=== PATIENT | female | born 1945 | race Caucasian/White ===

== ENCOUNTER 2019-04-26 09:32 | Inpatient (IN) ==
--- NOTE | 2019-04-26 10:03 | PROVIDER DOCUMENTATION ---
HPI-Abdominal Pain/GI Problem - General Chief Complaint: Abdominal Pain Stated Complaint: ABD PAIN,N/V Time Seen by Provider: 04/26/19 09:45 Source: patient, family Allergies/Adverse Reactions: Patient Allergies Allergy/AdvReac Type Severity Reaction Status Date / Time ampicillin Allergy RASH Verified 04/26/19 10:13 erythromycin base Allergy NAUSEA/VOMI Verified 04/26/19 10:13 TING Home Medications: Home Medication List Medication Instructions Recorded Confirmed Last Taken Type Alendronate Sodium [Fosamax] 1 tab PO DIRECTED 04/26/19 04/26/19 Unknown History Bupropion HCl [Bupropion Xl] 1 tab PO QAM 04/26/19 04/26/19 04/24/19 History Carvedilol [Coreg] 1 tab PO BID 04/26/19 04/26/19 04/24/19 History Diclofenac Sodium [Voltaren] 1 applic TD 4XDAY 04/26/19 04/26/19 04/24/19 History Hydrocodone/Acetaminophen 1 tab PO Q8H PRN PRN 04/26/19 04/26/19 04/24/19 History [Hydrocodone-Acetamin 10-325 mg] Losartan Potassium [Cozaar] 1 tab PO DAILY 04/26/19 04/26/19 04/24/19 History Metformin HCl [Glucophage] 1 tab PO BID 04/26/19 04/26/19 04/24/19 History Metoclopramide HCl 1 tab PO BID 04/26/19 04/26/19 04/24/19 History Omeprazole [Prilosec] 1 cap PO DAILY 04/26/19 04/26/19 04/24/19 History Ondansetron [Zofran] 1 tab PO Q6H PRN PRN 04/26/19 04/26/19 Unknown History Pramipexole [Mirapex] 1 tab PO QHS 04/26/19 04/26/19 04/24/19 History Promethazine [Phenergan] 1 tab PO BID 04/26/19 04/26/19 04/24/19 History Simvastatin 1 tab PO DAILY 04/26/19 04/26/19 04/24/19 History - History of Present Illness-ABD Nature of Presenting Problems: Patient states that she has had abdominal pain, nausia and vomiting since Saturday night. Her last bm was . She has a knot in her upper abdomen that has been painful. She has a history of a hernia, but thinks its gotten bigger. Abdominal Pain Onset Location: reports: RLQ, epigastric Pain Radiation: reports: no radiation Quality of Pain: reports: aching Severity in ED: reports: moderate, severe Onset/Duration: reports: 24 hours ago Timing: reports: still present Activities at Onset: reports: none Exposure to sick contacts?: No Modifying Factors: improves with: eating (caused nausia and vomiting) Associated Symptoms: reports: constipation Last BM: 3 days ago Dark Stools Present?: reports: none noticed Rectal Bleeding: reports: none Rectal Pain: reports: none Emesis Description: reports: clear (brown) Bruising or Bleeding Gums?: No Similar Symptoms Previously?: No Recently seen or treated by another doctor?: No Review of Systems - Adult - REVIEW OF SYSTEMS - ADULT Constitutional: reports: no symptoms reported Eyes: reports: no symptoms reported Ears, Nose, Mouth & Throat: reports: no symptoms reported Cardiovascular: reports: no symptoms reported Respiratory: reports: no symptoms reported Gastrointestinal: reports: see HPI Genitourinary: reports: no symptoms reported Musculoskeletal: reports: other (chronic back pain) Integumentary: reports: no symptoms reported Neurological: reports: no symptoms reported Psychiatric: reports: no symptoms reported Endocrine: reports: no symptoms reported Hematologic/Lymphatic: reports: no symptoms reported Allergic/Immunologic: reports: no symptoms reported Past History - Adult - PAST MEDICAL HISTORY-ADULT Review of Records: reports: Old Records Reviewed, Nursing Assessment Review Physical Exam-General - PHYSICAL EXAM-ADULT Initial Vital Signs Reviewed: Yes - CONSTITUTIONAL General Appearance: alert, no apparent distress - EYES Eyes: PERRL/EOMI, pink conjunctivae - HEAD, EARS, NOSE, MOUTH & THROAT HENMT: normocephalic/atraumatic, moist mucous membranes, normal ENT inspection, TMs normal, pharynx normal - NECK Neck: non-tender, full range of motion, supple - RESPIRATORY Respiratory: lungs clear, normal breath sounds, no pleuratic chest pain, no respiratory distress, no accessory muscle use - CARDIOVASCULAR Cardiovascular: normal peripheral pulses, regular rate, rhythm, no edema, no JVD , systolic murmur (2/6) - GASTROINTESTINAL (ABDOMEN) Abdominal Exam: abnormal bowel sounds, tenderness, mass (right upper quadrant. tender to palpate) - LYMPHATIC Lymphatic: no adenopathy - MUSCULOSKELETAL Back Exam: normal inspection Extremity: normal range of motion, non-tender, normal gait - SKIN Integumentary: normal color, normal turgor, warm/dry - NEUROLOGIC Neurologic: grossly normal - PSYCHIATRIC Psych/Mental Status: normal mood/affect Progress - PLAN OF CARE/RESULTS Progress/Plan/Lab Results: Vital Signs - 8 hr 04/26/19 09:37 Temperature 97.8 F Pulse Rate 135 H Respiratory Rate 22 Blood Pressure 122/66 O2 Sat by Pulse Oximetry 95 Orders Category Date Time Status Cardiac Monitoring DIRECTED Care 04/26/19 09:43 Active IV Insertion ORDERED Care 04/26/19 09:43 Active Notify MD of + Sepsis Screen NOW Care 04/26/19 09:43 Active Notify Physician As Ordered Care 04/26/19 09:43 Active CHEST-1 VIEW [RAD] Stat Exams 04/26/19 09:[address] ABD/PELVIS W/IV CONT ONLY [CT] Stat Exams 04/26/19 09:56 Ordered BLOOD CULTURE [BLDCUL] Stat Lab 04/26/19 09:43 Uncollected CBC WITH DIFF [HEME] Stat Lab 04/26/19 09:43 Uncollected CK PROFILE [SP CHEM] Stat Lab 04/26/19 09:43 Uncollected COMPREHENSIVE METABOLIC PANEL [CHEM] Stat Lab 04/26/19 09:43 Uncollected LACTATE, PLASMA [CHEM] Q3H Lab 04/26/19 09:45 Uncollected LACTATE, PLASMA [CHEM] Q3H Lab 04/26/19 12:45 Uncollected LACTATE, PLASMA [CHEM] Q3H Lab 04/26/19 15:45 Uncollected PROTIME WITH INR [COAG] Stat Lab 04/26/19 09:43 Uncollected PTT [COAG] Stat Lab 04/26/19 09:43 Uncollected TROPONIN T HIGH SENSITIVITY Stat Lab 04/26/19 09:43 Uncollected URINALYSIS W/POSS RFLX CULT [URINALYSIS] Stat Lab 04/26/19 09:43 Uncollected Oxygen Device Stat Oth 04/26/19 09:43 Active Result Diagrams: 04/26/19 10:40 04/26/19 10:40 - CONSULTS/PCP/HOSPITALIST Notification #1 *Consult/PCP/Hospitalist*: Dr Angel French Time Discussed: 13:10 Consult Disposition: Will see in ED Departure - Departure Date of Disposition Decision: 04/26/19 Time of Disposition Decision: 14:17 DIAGNOSIS: Incarcerated hernia, Small bowel obstruction Disposition: ADMITTED INPATIENT 09 Certified Medical Emergency: Emergent Condition: Serious Referrals and Follow-Ups: Dawn Keys MD [Primary Care Provider] - - Critical Care Note This patient required my direct & personal management of CC.: No Attestation - Physician/ HUSSEIN Attestation Patient care was provided by Advanced Practice Provider:: No The physician spent face to face time with patient:: Yes Advanced Practice Provider documentation review:: Supervising physician onsite and consulted in the evaluation and care of this patient. The physician did have a face to face encounter with the patient.
--- NOTE | 2019-04-26 10:17 | Diag Imaging Result Doc PS360 ---
EXAM: CHEST-1 VIEW 04/26/2019 HISTORY: sepsis protocol TECHNIQUE: AP portable upright at 0955 COMMENT: The inspiration is suboptimal. There is a loop of the hepatic flexure of the colon under the right hemidiaphragm. There are no previous studies. There are no apparent focal pulmonary opacities. IMPRESSION: No evidence of acute disease. Electronically signed by Liam King 04/26/2019 10:15 AM
[2019-04-26 10:59] LABS: BASO# 0.06 X1000 (0.0-0.2); BASO% 0.3 % (0.0-0.8); HEMATOCRIT 44.8 % (37.0-47.0); HEMOGLOBIN 14.9 g/dL (12.0-16.0); IMM GRAN# 0.05 X1000 (0.0-0.04); IMM GRAN% 0.3 % (0.0-0.5); LYMPH# 1.03 X1000 (1.2-3.4); LYMPH% 5.6 % (20.5-51.1); MCH 29.9 PG (27-31); MCHC 33.3 g/dL (33-37); MONO# 1.99 X1000 (0.11-0.59); MONO% 10.8 % (1.7-9.3); MPV 8.6 FL (7.4-10.4); NEUT# 15.32 X1000 (1.4-6.5); PLT 453 X1000 (130-400); RBC 4.98 XMIL (4.2-5.4); RDW 13.1 % (11.5-14.5); WBC 18.45 X1000 (4.8-10.8)
[2019-04-26 11:04] LABS: PROTIME 13.3 Seconds (11.0-16.0)
[2019-04-26 11:04] LABS: URINE SOURCE CATH
[2019-04-26 11:05] LABS: PTT 30.1 Seconds (22.3-41.8)
[2019-04-26 11:07] LABS: BILIRUBIN URINE SMALL (NEGATIVE); BLOOD URINE MODERATE (NEGATIVE); COLOR YELLOW; GLUCOSE URINE TRACE mg/dL (NEGATIVE); KETONE URINE TRACE mg/dL (NEGATIVE); LEUKOCYTES URINE NEGATIVE (NEGATIVE); NITRITE URINE NEGATIVE (NEGATIVE); PH URINE 5.5; PROTEIN URINE 70 mg/dL (NEGATIVE); SP GRAVITY URINE 1.019; TURBIDITY URINE HAZY (CLEAR); UR EPITHELIAL CELLS <10 /HPF (<10); URINE BACTERIA NEGATIVE /HPF; URINE WBC <10 /HPF (<10); UROBILINOGEN URINE NORMAL (NORMAL)
[2019-04-26] MEDS ORDERED: NS 1,000 ML IV ONE ×2 (11:14→11:54)
[2019-04-26] MEDS ORDERED: PHENERGAN IV ONE (11:15)
[2019-04-26] MEDS ORDERED: SODIUM CHLORIDE 0.9% INJ ONE ×2 (11:15→17:16)
[2019-04-26 11:19] LABS: ESTIMATED GFR > 60
[2019-04-26 11:21] LABS: AGAP 17; ALB/GLOB RATIO 1.3; ALBUMIN 4.1 g/dL (3.5-5.0); ALKALINE PHOSPHATASE 84 U/L (32-104); BUN 22 mg/dL (8-22); CHLORIDE 88 mmol/L (98-107); CK PROFILE 93 U/L (24-173); COSMO 270; CREATININE 0.8 mg/dL (0.5-0.9); GLUCOSE 168 mg/dL (70-104); GOT 23 U/L (10-30); GPT 16 U/L (10-36); SODIUM 131 mmol/L (136-145); TCO2 26 mmol/L (25-35); TOTAL BILIRUBIN 0.59 mg/dL (0.20-1.00); TOTAL PROTEIN 7.2 g/dL (6.3-8.3)
[2019-04-26] MEDS ORDERED: LEVAQUIN 500 MG/D5W 500 MG/100 ML IVPB IV ONE (11:37)
--- NOTE | 2019-04-26 12:44 | Diag Imaging Result Doc PS360 ---
EXAM: CT ABD/PELVIS W/IV CONT ONLY 04/26/2019 HISTORY: abdominal pain TECHNIQUE: This exam was performed using automated exposure control, adjustment of mA or kV according to patient size, and/or use of iterative reconstruction technique. COMMENT: The current study is compared with 07/13/2016. There is platelike opacity in the right lower lobe which is slightly worse than on the previous study. There may be atelectasis superimposed on fibrosis. There is a hiatal hernia. The aorta is not distended. The mesenteric and renal arteries are patent. There is no evidence of nephrolithiasis or hydronephrosis. There has been cholecystectomy. There are no apparent renal masses although there are some small cortical cysts on the left. The pancreas is somewhat atrophic. The adrenal glands are not enlarged. There are some cysts present in the liver as well as granulomata in the liver and spleen. There is some fluid in the stomach without significant dilatation. The duodenum is somewhat distended with fluid. There is marked dilatation of the proximal jejunum. There is a ventral hernia above the umbilicus containing a loop of proximal small bowel. This was not the case on the previous study. The small bowel distal to the hernia is normal or decreased in caliber. There is a moderate amount of stool present in the ascending colon. The descending colon and sigmoid are not distended. Pelvis: The appendix is normal in appearance. There is diverticulosis in the sigmoid colon without evidence of diverticulitis. The urinary bladder is not distended. There is no evidence of free fluid. There has been hysterectomy. There are degenerative changes in the symphysis pubis. There are degenerative disc and facet changes in the lumbar spine. IMPRESSION: Ventral hernia with incarcerated loop of small bowel and partial or early small bowel obstruction. Electronically signed by Liam King 04/26/2019 12:41 PM
[2019-04-26] MEDS ORDERED: ATIVAN IV ONE (13:49)
[2019-04-26] MEDS ORDERED: DIPRIVAN 1% ONE (14:12)
[2019-04-26] MEDS ORDERED: FENTANYL ONE (14:12)
[2019-04-26] MEDS ORDERED: ROBINUL ONE ×2 (14:15→15:21)
[2019-04-26] MEDS ORDERED: QUELICIN (DOSE) ONE (14:15)
[2019-04-26] MEDS ORDERED: XYLOCAINE-MPF 2% ONE (14:15)
[2019-04-26] MEDS ORDERED: MARCAINE 0.25% PF ONE (14:26)
[2019-04-26] MEDS ORDERED: NORCURON ONE (14:56)
[2019-04-26] MEDS ORDERED: STERILE WATER INJ. ONE (14:56)
--- NOTE | 2019-04-26 14:59 | HISTORY AND PHYSICAL ---
DATE: 04/26/2019 CHIEF COMPLAINT: Abdominal pain, nausea, vomiting. REASON FOR ADMISSION: Incarcerated ventral incisional hernia. HISTORY OF PRESENT ILLNESS: This is a 73-year-old female who is reasonably healthy. She has had several abdominal operations including laparoscopic cholecystectomy, laparoscopic paraesophageal hernia repair with apparent vagus nerve injury with some degree of gastroparesis associated with it. Earlier today, she developed acute onset worsening of the ventral hernia that she was aware of. It became more firm. She had some vomiting. In the ER, CT scan showed incarcerated ventral hernia with bowel obstruction associated. I was consulted. MEDICAL HISTORY: Restless legs. She has had a history of paraesophageal hernia repair. I believe she has high blood pressure, hyperlipidemia, and a heart murmur which has been nonoperative, and osteoporosis. SURGICAL HISTORY: Laparoscopic paraesophageal hernia, laparoscopic cholecystectomy. SOCIAL HISTORY: No tobacco, alcohol, or drugs. She is a retired teacher. FAMILY HISTORY: Negative for cancer. REVIEW OF SYSTEMS: A 10-point review of systems was performed and negative other than what was mentioned in the HPI. PHYSICAL EXAMINATION: Vital Signs: She is tachycardiac. She is afebrile. Blood pressure 155/89, oxygen saturation 100 percent. General: She is alert. She is appears uncomfortable but in no acute distress. HEENT: No scleral icterus. No cervical mass. Cardiovascular: Sinus tachycardia. Pulmonary: No increased work of breathing. Abdomen: Soft. Mildly distended. There is a tender mass in the midline below a prior scar that is nonreducible, consistent with incarcerated hernia. There are no overlying skin changes. Integument: Warm and dry without jaundice. Psychiatric: Appropriate affect. Peripheral Vascular: She does have some trace lower extremity edema. Lymphatic: No cervical adenopathy. LABORATORY DATA: White count is 18, hematocrit is 44, platelets 453,000. INR is 1.0. Creatinine 0.8. LFTs are normal. Lactate is 1.2. Urinalysis is negative for nitrates and leukocytes. I reviewed her CT scan of the abdomen and pelvis. ASSESSMENT AND PLAN: A 73-year-old female with incarcerated incisional hernia with bowel obstruction associated with it. I do not see obvious signs of ischemia but I worry that this is impending. We discussed risks of bleeding, infection, recurrence, the anticipated recovery, and the possibility of bowel resection. She understands all this and consents. We are going to operate emergently. They have given her antibiotics. We will plan on placing a nasogastric tube in the operating room and plan for bowel rest, and also plan for anticipated ileus. She agrees and consents. cc: Jonh French MD
[2019-04-26] MEDS ORDERED: NEOSTIGMINE ONE (15:20)
[2019-04-26] MEDS ORDERED: ZOFRAN ONE (15:21)
[2019-04-26 16:09] LABS: URINE SOURCE CATH
[2019-04-26 16:15] LABS: BILIRUBIN URINE NEGATIVE (NEGATIVE); BLOOD URINE SMALL (NEGATIVE); COLOR STRAW; GLUCOSE URINE NEGATIVE (NEGATIVE); KETONE URINE NEGATIVE (NEGATIVE); LEUKOCYTES URINE NEGATIVE (NEGATIVE); NITRITE URINE NEGATIVE (NEGATIVE); PROTEIN URINE NEGATIVE (NEGATIVE); SP GRAVITY URINE 1.027; TURBIDITY URINE CLEAR (CLEAR); UR EPITHELIAL CELLS <10 /HPF (<10); URINE BACTERIA NEGATIVE /HPF; URINE RBC <10 /HPF (<10); URINE WBC <10 /HPF (<10); UROBILINOGEN URINE NORMAL (NORMAL)
[2019-04-26] MEDS ORDERED: BLISTEX MEDICATED BERRY LIP BALM ONE (16:21)
[2019-04-26] MEDS: DILAUDID ONE ×4 (16:40→16:52)
[2019-04-26] MEDS ORDERED: LR 1,000 ML ONE (16:50)
[2019-04-26] MEDS ORDERED: PROTONIX IV ONE (17:16)
[2019-04-26] MEDS ORDERED: SODIUM CHLORIDE 0.9% INJ SCH (17:16)
--- NOTE | 2019-04-26 17:31 | EKG Report ---
Test Performed on : 04/26/2019 2:05:19 PM Test Reason : ABD PAIN Blood Pressure : / mmHG Vent. Rate : 108 BPM Atrial Rate : 108 BPM P-R Int : 180 ms QRS Dur : 088 ms QT Int : 344 ms P-R-T Axes : 010 -17 016 degrees QTc Int : 460 ms Sinus tachycardia. Cannot rule out Anterior infarct , age undetermined Abnormal ECG No previous ECGs available Unconfirmed Result
[2019-04-26] MEDS: LR 1,000 ML IV SCH (18:21)
--- NOTE | 2019-04-26 19:38 | OPERATIVE NOTE ---
PROCEDURE DATE: 04/26/2019 POSTOPERATIVE DIAGNOSES: 1. Incarcerated ventral incisional hernia. 2. Small bowel obstruction. POSTOP: 1. Incarcerated ventral incisional hernia. 2. Small bowel obstruction. PROCEDURE PERFORMED: Open repair of incarcerated ventral incisional hernia with reduction of small bowel. ESTIMATED BLOOD LOSS: 20 mL. SPECIMENS: Hernia sac. INDICATIONS: A female who presented with acute worsening of supraumbilical midline incisional hernia with vomiting and CT scan showed incarceration of small bowel causing the point of obstruction. FINDINGS: There was dusky small bowel that pinked up with observation. There was no evidence of full thickness necrosis but was densely incarcerated. OPERATIVE NOTE: Risks, benefits, alternatives discussed with patient, she consented to procedure seen preop surgery site was confirmed. She was taken emergently operating room emergently. She was given preincisional antibiotics. A Clark catheter and nasogastric tube were placed and her abdomen is prepped chlorhexidine solution draped usual fashion. After time-out made a hernia incision over the hernia and carried this down circumferentially dissecting out the sac. We freed it up from the fascia. We had to make the fascial defect larger to allow reduction the small bowel, prior to doing this though we did open the sac and inspect the bowel. It was quite dusky but with observation and placing warm saline on it was able to pink up and there was a very tiny serosal injury made on mobilizing it out of the fascia that was imbricated with 3-0 Vicryl suture, reducing the abdomen, mobilized and freed up the fascia and debrided it circumferentially and then closed with interrupted 0 Prolene sutures along the midline. There was no tension on the closure. We elected to not place mesh given the emergent nature and the changes noted in the bowel although there was no gross contamination. We irrigated the superficial wound, noted hemostasis, closed the skin with surgical clips. A pressure dressing and abdominal binder was applied. She tolerated it well, was awoken and transferred to recovery and we spoke with family. Counts correct. = cc: Jonh French MD
[2019-04-26] MEDS: LOPRESSOR IV SCH (23:04)
[2019-04-26] MEDS: MIRAPEX PO SCH (23:04)
[2019-04-26] MEDS: PERIDEX MT SCH (23:05)
[2019-04-27] MEDS: LOPRESSOR IV SCH ×4 (05:46→22:58)
[2019-04-27] MEDS: LR 1,000 ML IV SCH ×2 (07:24→17:43)
[2019-04-27] MEDS: PERIDEX MT SCH ×2 (11:43→22:59)
[2019-04-27] MEDS: MORPHINE IV PRN ×2 (16:22→20:54)
[2019-04-27] MEDS ORDERED: PROTONIX IV SCH (17:00)
[2019-04-27] MEDS: PROTONIX IV SCH (17:43)
[2019-04-27] MEDS: SODIUM CHLORIDE 0.9% INJ SCH (17:44)
[2019-04-27] MEDS ORDERED: CHLORASEPTIC SPRAY MT PRN (17:44)
[2019-04-27] MEDS: MIRAPEX PO SCH (22:58)
[2019-04-27] MEDS: ZOCOR PO SCH (22:58)
[2019-04-28] MEDS: MORPHINE IV PRN ×5 (01:26→20:13)
--- NOTE | 2019-04-28 03:20 | CONSULTATION ---
DATE OF CONSULTATION: 04/27/2019 HISTORY OF PRESENT ILLNESS: A 73-year-old white female admitted to the hospital yesterday for incarcerated bowel due to omental hernia. Dr. French operated upon and admitted her to the floor. I was consulted for medical management. The patient has NG tube placed and events noted. I did review the H and P and intraoperative findings. He is well known to my practice. REVIEW OF SYSTEMS: Constitutional: Some discomfort with NG tube. No history of cardiopulmonary. No chest pain, shortness of breath, PND, orthopnea. GI: Some postop pain on binder. No flatus. No swelling of legs. Neurological: No neurological symptoms or weakness. PAST MEDICAL HISTORY: Chronic anxiety, moderate aortic stenosis with aortic insufficiency, last echocardiogram on 01/25/2019. Collagenous colitis, depression, type 2 diabetes, hypertension, hiatal hernia, hyperlipidemia, B12 deficiency, post cholecystectomy syndrome, ventral hernia. PAST SURGICAL HISTORY: Bilateral cataract surgery, tonsillectomy, anterior gastropexy for hiatal hernia in [address] Cardozo at [facility], gallbladder surgery, hysterectomy, tubal ligation. MEDICINES: In my office aspirin, Coreg 3.125 p.o. b.i.d., Voltaren gel as needed, [place] 10 q. 8h as needed, metformin 1000 p.o. b.i.d., Reglan 5 mg b.i.d., Prilosec 20 mg daily, Mirapex 0.5 at bedtime, simvastatin 20 mg daily, Fosamax 70 mg once a week, bupropion 300 mg daily, losartan 100 daily. ALLERGIES: Reported to ampicillin, erythromycin. Norvasc - pedal edema. SOCIAL HISTORY: for 47 years, one child. No smoking. No alcohol. Living in [place]. FAMILY HISTORY: Father at the age of 86 with congestive heart failure. Mother of Natural causes HEALTH MAINTENANCE: Flu vaccine in January of 2019. Pneumococcal in 2009. Shingles in 2007. Mammography in November of 2018. DEXA scan in November of 2017. Colonoscopy in 2007. EGD by Dr. Lentz in February of 2016. REVIEW OF SYSTEMS: As mentioned above on the HPI. PHYSICAL EXAMINATION: Vital Signs: Temperature is 98 degrees, pulse 98. Vital signs are stable. HEENT: Atraumatic, normocephalic. Pupils are equal and reactive to light. NG tube was placed. Neck: Supple. No lymphadenopathy. Chest: Bilateral air entry. Heart: Sounds are regular with a crescendo decrescendo murmur in the aortic area. Abdomen: Soft. A binder was placed. Decreased bowel sounds. Extremities: No peripheral edema or cyanosis. Neurologic: No obvious neurological deficits. LABORATORY DATA: White cell count 18.45, hematocrit 44, platelets 453,000. PT 13, INR 1.0, SMA 7 is normal, glucose 168. Troponin T was slightly positive. CK was normal. Plasma lactate 3.1. Urinalysis is clear. Blood cultures are pending. IMAGING: EKG, sinus tachycardia, some nonspecific changes, nothing acute. CT scan of the abdomen and pelvis, there is a hiatal hernia, right lower lobe atelectasis, cholecystectomy, cortical cyst on the left kidney, atrophic pancreas. Ventral hernia was incarcerated. Appendix is normal. Chest x-ray showed cardiomegaly with atelectasis in the right lower lobe. ASSESSMENT AND PLAN: A 74-year-old white female admitted to the hospital for incarcerated ventral hernia status post repair by Dr. French with multiple medical problems as follows: 1. Abnormal chest x-ray, incentive spirometry to prevent hypostatic pneumonia. 2. History of hiatal hernia with reflux disease. Would start on IV Reglan and Nexium. 3. Moderate aortic stenosis, cardiomegaly, positive troponin, no chest pain. We will get a repeat EKG and cardiac enzymes in the morning. 4. GI prophylaxis. IV Protonix. 5. Deep vein thrombosis prophylaxis. Antithrombotic stockings. 6. Elevated white cell count with lactate levels. We will repeat the laboratory workup in the morning. Since the patient has an NG tube we will also check flat and upright of the abdomen with the chest in the morning. 7. Type 2 diabetes. We will go to insulin with sliding scale with coverage. Thanks for the kind referral by Dr. French. cc: MD Jonh Mcdermott MD MTDD
[2019-04-28] MEDS: LR 1,000 ML IV SCH (03:45)
[2019-04-28] MEDS: LOPRESSOR IV SCH ×3 (05:40→16:13)
[2019-04-28] MEDS ORDERED: HUMULIN R SUBQ SCH (07:00)
[2019-04-28] MEDS: HUMULIN R SUBQ SCH ×4 (07:00→22:14)
--- NOTE | 2019-04-28 07:49 | EKG Report ---
Test Performed on : 04/28/2019 07:24:12 AM Test Reason : cp Blood Pressure : / mmHG Vent. Rate : 095 BPM Atrial Rate : 095 BPM P-R Int : 178 ms QRS Dur : 092 ms QT Int : 350 ms P-R-T Axes : 026 -14 -01 degrees QTc Int : 439 ms Normal sinus rhythm. Cannot rule out Anterior infarct (cited on or before 26-APR-2019) Abnormal ECG When compared with ECG of 26-APR-2019 14:05, (Unconfirmed) No significant change was found Confirmed by Hunter EDWARDS, Kenan Stout ([id number]) on 04/30/2019 2:32:42 PM
[2019-04-28 08:05] LABS: AGAP 10; ALB/GLOB RATIO 0.9; ALBUMIN 2.5 g/dL (3.5-5.0); ALKALINE PHOSPHATASE 60 U/L (32-104); BUN 15 mg/dL (8-22); CALCIUM 8.2 mg/dL (8.8-10.2); CHLORIDE 98 mmol/L (98-107); COSMO 274; CREATININE 0.4 mg/dL (0.5-0.9); ESTIMATED GFR > 60; GLUCOSE 126 mg/dL (70-104); GOT 25 U/L (10-30); GPT 12 U/L (10-36); POTASSIUM 3.8 mmol/L (3.5-5.1); SODIUM 136 mmol/L (136-145); TCO2 28 mmol/L (25-35); TOTAL BILIRUBIN 0.36 mg/dL (0.20-1.00); TOTAL PROTEIN 5.4 g/dL (6.3-8.3)
[2019-04-28 08:10] LABS: BASO# 0.02 X1000 (0.0-0.2); BASO% 0.2 % (0.0-0.8); EOS# 0.07 X1000 (0.0-0.7); EOS% 0.7 % (0.0-10.0); HEMATOCRIT 34.5 % (37.0-47.0); HEMOGLOBIN 10.6 g/dL (12.0-16.0); IMM GRAN# 0.02 X1000 (0.0-0.04); IMM GRAN% 0.2 % (0.0-0.5); LYMPH# 1.15 X1000 (1.2-3.4); LYMPH% 11.4 % (20.5-51.1); MCH 29.8 PG (27-31); MCHC 30.7 g/dL (33-37); MCV 96.9 FL (81-99); MONO# 1.11 X1000 (0.11-0.59); MPV 8.7 FL (7.4-10.4); NEUT# 7.75 X1000 (1.4-6.5); NEUT% 76.5 % (42.2-75.2); PLT 292 X1000 (130-400); RBC 3.56 XMIL (4.2-5.4); RDW 13.4 % (11.5-14.5); WBC 10.12 X1000 (4.8-10.8)
[2019-04-28 08:21] LABS: CK INDEX 2.7 (0.0-2.5); CK-MB 5.55 ng/mL (0.0-5.0)
[2019-04-28] MEDS: PROTONIX IV SCH (09:07)
[2019-04-28] MEDS: SODIUM CHLORIDE 0.9% INJ SCH (09:10)
[2019-04-28] MEDS: PERIDEX MT SCH ×2 (09:10→20:16)
--- NOTE | 2019-04-28 10:48 | Diag Imaging Result Doc PS360 ---
CHEST-1 VIEW - 04/28/2019 INDICATION: SOB COMPARISON: 04/26/2019 FINDINGS: Stable cardiomegaly. Stable right hemidiaphragm elevation with prominent loops of gas inflated colon underneath the right hemidiaphragm. No infiltrates. No pneumothorax or large pleural effusion. IMPRESSION: Cardiomegaly. Electronically signed by Kip Padilla 04/28/2019 10:45 AM
--- NOTE | 2019-04-28 10:51 | Diag Imaging Result Doc PS360 ---
ABDOMEN FLAT/UPRIGHT - 04/28/2019 INDICATION: pain COMPARISON: None FINDINGS: There are laparotomy skin jie. There is moderate fecal impaction of the ascending colon. There is prominent gas inflated: Underneath the right hemidiaphragm. No evidence of free air. There are some abnormally gas-distended loops of small bowel centrally. These measure up to about 4 cm. IMPRESSION: 1. Abnormal small bowel gas pattern, suggestive of partial obstruction or ileus. 2. Moderate fecal impaction of the proximal colon. Electronically signed by Kip Padilla 04/28/2019 10:49 AM
[2019-04-28 15:11] LABS: CK INDEX 2.8 (0.0-2.5); CK-MB 6.23 ng/mL (0.0-5.0)
--- NOTE | 2019-04-28 20:09 | PROGRESS NOTE ---
DATE: 04/28/2019 SUBJECTIVE: The patient denies any chest pain. Positive troponin as well as CK-MB. History of passing gas. Chest x-ray showed atelectasis in the right base with interposition of the bowel and cardiomegaly. History of slightly passing gas this morning. OBJECTIVE: On exam, temperature is 98.3 degrees, heart rate is 93, vital signs are stable. HEENT exam within normal limits. Chest has bilateral air entry. Decreased breath sounds. She has a 3/6 systolic murmur in the aortic area. Belly is soft. Abdominal binder was placed. No peripheral edema or cyanosis. No neurological deficits. LABORATORY DATA: White cell count 10, hematocrit 34.5, platelets 292,000. SMA 7 is normal. Positive troponin. Positive CK-MB index. DIAGNOSTIC DATA: EKG: Normal sinus, nothing acute. ASSESSMENT AND PLAN: 1. Postoperative day 2 for incarcerated bowel due to ventral hernia, complicated by mild ileus, improving. Clark was discontinued. 2. Discontinue Clark. Decrease intravenous fluids to 50 mL/h and start on clear liquids. 3. Type 2 diabetes, on insulin protocol. 4. Positive cardiac enzymes. Electrocardiogram nondiagnostic. No chest pain. We will get echocardiography, repeat the CK and proBNP. 5. Continue intravenous Protonix. Antithrombotic stockings, out of the bed. If she continues to have problems, we will consider Cardiology consult for a stress test. We will closely monitor. Level of documentation is 25 minutes. cc: MD Jonh Mcdermott MD
[2019-04-28] MEDS: ZOCOR PO SCH (20:15)
[2019-04-28] MEDS: MIRAPEX PO SCH (20:16)
--- NOTE | 2019-04-28 20:57 | GENERAL SURGERY PROGRESS NOTE ---
DATE: 04/28/2019 SUBJECTIVE: Doing okay. She is passing gas. Her abdomen is soft. Her dressing is in place. NG tube output is minimal. No fevers. Pulse 93, blood pressure 120/68, oxygen saturation 90%. General, she is alert. Dressing is intact. No evidence of recurrent hernia. Reviewed her labs. LABS: White count 10, hematocrit 34, creatinine 0.4. Glucoses are elevated. ASSESSMENT AND PLAN: The hospitalists have ordered troponins. They do seem to be uptrending. She had an echocardiogram. Dr. Keys is following her with regards to this. From the abdominal standpoint, her bowel function has returned. We will remove her NG tube and give her clear liquids and monitor her going forward. cc: Jonh French MD
[2019-04-28 23:51] LABS: CK INDEX 2.7 (0.0-2.5); CK-MB 5.74 ng/mL (0.0-5.0)
[2019-04-29] MEDS: LOPRESSOR IV SCH ×6 (00:14→21:21)
[2019-04-29] MEDS: MORPHINE IV PRN ×5 (00:14→21:21)
[2019-04-29] MEDS: LR 1,000 ML IV SCH ×2 (01:34→06:57)
[2019-04-29] MEDS: HUMULIN R SUBQ SCH ×3 (06:57→16:40)
[2019-04-29 08:08] LABS: CK INDEX 2.9 (0.0-2.5); CK-MB 5.11 ng/mL (0.0-5.0)
--- NOTE | 2019-04-29 08:15 | EKG Report ---
Test Performed on : 04/29/2019 06:46:07 AM Test Reason : cp Blood Pressure : / mmHG Vent. Rate : 090 BPM Atrial Rate : 090 BPM P-R Int : 166 ms QRS Dur : 086 ms QT Int : 362 ms P-R-T Axes : 051 -12 -10 degrees QTc Int : 442 ms Normal sinus rhythm. Nonspecific T wave abnormality Abnormal ECG When compared with ECG of 28-APR-2019 07:24, (Unconfirmed) No significant change was found Confirmed by Hunter EDWARDS, Kenan Stout ([id number]) on 04/30/2019 2:33:51 PM
[2019-04-29] MEDS: SODIUM CHLORIDE 0.9% INJ SCH (09:05)
[2019-04-29] MEDS: PERIDEX MT SCH ×2 (09:05→21:21)
[2019-04-29] MEDS: PROTONIX IV SCH (09:05)
--- NOTE | 2019-04-29 14:39 | ECHO REPORT ---
ORDER DATE: 04/28/2019 INDICATION: Embolism. FINDINGS: 1. The right atrium appears normal in size at 3.7 cm. 2. Mild tricuspid regurgitation. Insufficient data to estimate RV systolic pressure. 3. Normal RV size and systolic function. 4. Mild pulmonic insufficiency. 5. Left atrium appears normal in size with a volume index of 26. 6. The mitral valve is difficult to visualize. There is heavy mitral annular calcification. Mild mitral regurgitation. No clear evidence of stenosis, but the Doppler evaluation is difficult. 7. Normal LV size, end-diastolic dimension of 4.2 cm. No suggestion of left ventricular hypertrophy with an intraventricular septal wall thickness of 1.1 cm. Normal LV systolic function. Estimated EF is 60% to 65% percent. 8. Aortic valve is calcified with restriction of motion consistent with mild aortic stenosis. Peak gradient is 33, mean of 19. Valve area is 1.8 cm2. Irgx-or-tqlpohkt aortic insufficiency. 9. Aorta appears normal on visualized segments. 10. No pericardial effusion seen. cc: MD Edgardo Rowell MD R. Tyler Harney, MD
[2019-04-29] MEDS: ZOFRAN IV PRN (16:37)
--- NOTE | 2019-04-29 20:02 | GENERAL SURGERY PROGRESS NOTE ---
DATE: 04/29/2019 SUBJECTIVE: Doing well. Bowels are functioning. She is tolerating clear liquids. No fevers. OBJECTIVE: Pulse 90, blood pressure 138/56. Her abdomen is soft. Incision intact. No recurrent hernia. LABORATORY DATA: No new labs this morning, other than cardiac markers which seem to be downtrending, at least her CK-MB is. ASSESSMENT AND PLAN: This 73-year-old female is status post incarcerated ventral hernia repair. She is clinically doing well. I have encouraged her to be out of bed. She tolerated her NG tube out. She is on clear liquids. We will plan on soft diet in the near future. Otherwise, Dr. Keys is following regarding her cardiac history. I think he is considering a stress test, although her troponins and EKG have somewhat leveled off. We will continue to follow along, but from a surgical perspective, we can begin advancing her diet and participating in physical therapy going forward. I do not see any wound issues. cc: Jonh French MD
[2019-04-29] MEDS: ZOCOR PO SCH (21:21)
[2019-04-29] MEDS: MIRAPEX PO SCH (21:21)
--- NOTE | 2019-04-29 22:31 | PROGRESS NOTE ---
DATE: 04/29/2019 SUBJECTIVE: The patient denies any chest pain. Cardiac enzymes were positive. ProBNP was high. Cardiomegaly. She had echocardiogram done in my office 3 months ago. At that time the patient had what appeared to be bicuspid aortic valve, mild to moderate aortic stenosis with insufficiency. LV function was normal. Nevertheless, she is passing gas, tolerating very well. REVIEW OF SYSTEMS: Otherwise none reported. OBJECTIVE: On exam, temperature is 98.2 degrees, pulse 87. Vital signs are stable. HEENT exam within normal limits. Neck is supple. Chest is clear. Heart sounds are regular, with crescendo- decrescendo murmur. Belly is soft. Good bowel sounds. No peripheral edema. No neurological deficits. INVESTIGATIONS: White cell count 10, hematocrit 34. SMA 7 is normal. ProBNP was 97. Cardiac enzymes were positive. ASSESSMENT AND PLAN: 1. Postoperative day 3 for incarcerated ventral hernia. 2. Positive cardiac enzymes. No chest pain. Electrocardiogram nondiagnostic. 3. Decrease intravenous fluids to 50. Out of the bed with physical therapy. 4. Echocardiography findings: No wall motion abnormalities. 5. Hyperlipidemia, on Zocor. 6. Start with aspirin, and we will check the labs in the morning. We will follow up. Level of documentation 25 minutes. cc: MD Jonh Mcdermott MD
[2019-04-29] MEDS: TYLENOL PO PRN (22:46)
[2019-04-30] MEDS: MORPHINE IV PRN ×3 (03:13→15:41)
[2019-04-30] MEDS: LOPRESSOR IV SCH ×3 (05:39→06:04)
[2019-04-30] MEDS: HUMULIN R SUBQ SCH ×4 (06:46→18:19)
[2019-04-30 07:20] LABS: BASO# 0.04 X1000 (0.0-0.2); BASO% 0.6 % (0.0-0.8); EOS# 0.19 X1000 (0.0-0.7); EOS% 2.9 % (0.0-10.0); HEMATOCRIT 34.2 % (37.0-47.0); HEMOGLOBIN 10.6 g/dL (12.0-16.0); IMM GRAN# 0.02 X1000 (0.0-0.04); IMM GRAN% 0.3 % (0.0-0.5); LYMPH# 1.82 X1000 (1.2-3.4); LYMPH% 27.7 % (20.5-51.1); MCH 29.6 PG (27-31); MCV 95.5 FL (81-99); MONO% 10.6 % (1.7-9.3); MPV 8.5 FL (7.4-10.4); NEUT# 3.81 X1000 (1.4-6.5); NEUT% 57.9 % (42.2-75.2); PLT 318 X1000 (130-400); RBC 3.58 XMIL (4.2-5.4); RDW 12.8 % (11.5-14.5); WBC 6.58 X1000 (4.8-10.8)
--- NOTE | 2019-04-30 07:22 | EKG Report ---
Test Performed on : 04/30/2019 07:12:23 AM Test Reason : cp Blood Pressure : / mmHG Vent. Rate : 078 BPM Atrial Rate : 078 BPM P-R Int : 174 ms QRS Dur : 094 ms QT Int : 402 ms P-R-T Axes : 056 -13 -20 degrees QTc Int : 458 ms Sinus rhythm. with occasional premature ventricular complexes. T wave abnormality, consider anterior ischemia Abnormal ECG When compared with ECG of 29-APR-2019 06:46, (Unconfirmed) premature ventricular complexes. are now present Confirmed by Hunter EDWARDS, Kenan Stout ([id number]) on 04/30/2019 2:36:00 PM
[2019-04-30 08:14] LABS: AGAP 8; BUN 15 mg/dL (8-22); CHLORIDE 98 mmol/L (98-107); CK PROFILE 134 U/L (24-173); COSMO 274; CREATININE 0.5 mg/dL (0.5-0.9); ESTIMATED GFR > 60; GLUCOSE 124 mg/dL (70-104); POTASSIUM 3.2 mmol/L (3.5-5.1); SODIUM 136 mmol/L (136-145); TCO2 30 mmol/L (25-35)
[2019-04-30] MEDS ORDERED: KLOR-CON PO ONE (08:29)
[2019-04-30] MEDS: ZOFRAN IV PRN ×2 (09:41→15:41)
[2019-04-30] MEDS: SODIUM CHLORIDE 0.9% INJ SCH (09:43)
[2019-04-30] MEDS: ASPIRIN PO SCH (09:43)
[2019-04-30] MEDS: PROTONIX IV SCH (09:43)
[2019-04-30] MEDS: PERIDEX MT SCH ×2 (09:43→21:40)
[2019-04-30] MEDS: REGLAN PO SCH ×2 (09:57→21:40)
[2019-04-30] MEDS: WELLBUTRIN XL PO SCH (09:59)
[2019-04-30] MEDS: COREG PO SCH ×2 (09:59→21:38)
--- NOTE | 2019-04-30 10:07 | PROGRESS NOTE ---
DATE: 04/30/2019 SUBJECTIVE: The patient is complains of breathing is cutting off with binder. I just removed the binder and the wound looks fine. The patient denies of any chest pain. She is walking. I did explain the cardiac enzymes were slightly positive. Today CK is coming down. ProBNP 2400. No chest pain, shortness of breath. OBJECTIVE: 98 degrees, pulse is 96. Vitals are stable.HEENT: Within normal limits. Neck: Supple. Chest: Clear. Heart: Sounds are regular with crescendo decrescendo murmur 2 x 6 in the aortic area. Abdomen: Belly is soft and nontender. Good bowel sounds. INVESTIGATIONS: EKG normal sinus, some nonspecific T-wave inversions in the anterior leads. CBC: White cell count 6.5, hematocrit 34.2, platelets 318,000. Sodium 136, potassium 3.2, BUN 15, creatinine 0.5 glucose 117. ASSESSMENT AND PLAN: 1. Positive cardiac enzymes. No chest pain. On aspirin. At some point she needs a stress test. 2. Advance the diet as tolerated since she has good bowel movements. 3. Discontinue Ringer's lactate. 4. Tylenol for pain and replace the potassium and slowly reconcile home medications. We will follow up. LEVEL OF DOCUMENTATION: 25 minutes. cc: MD Jonh Mcdermott MD
[2019-04-30 19:28] LABS: ALLEN TEST YES; BE 5.6 mmoll (-3.0-3.0); BLOOD TYPE ARTERIAL; HCO3-(ACT) 29.2 mmoll (20.0-26.0); METHB 0.7 % (0.0-1.5); O2(CT) 15.1 mL/dL (15.0-23.0); O2HB 93.8 % (95.0-99.0); PCO2(98.6) 41 mmHg (35-45); PO2(98.6) 65 mmHg (60-100); SAMPLE BLOOD; SAO2 96.7 % (95.0-100.0); THB 11.4 g/dL (11.5-17.4); pH(98.6) 7.47 (7.35-7.45)
[2019-04-30 19:29] LABS: MODALITY CANNULA
[2019-04-30] MEDS ORDERED: MORPHINE IV ONE (19:36)
[2019-04-30 20:20] LABS: BASO# 0.04 X1000 (0.0-0.2); BASO% 0.4 % (0.0-0.8); EOS# 0.46 X1000 (0.0-0.7); EOS% 4.5 % (0.0-10.0); HEMATOCRIT 39.9 % (37.0-47.0); HEMOGLOBIN 12.8 g/dL (12.0-16.0); IMM GRAN# 0.07 X1000 (0.0-0.04); IMM GRAN% 0.7 % (0.0-0.5); LYMPH# 0.71 X1000 (1.2-3.4); LYMPH% 6.9 % (20.5-51.1); MCH 30.3 PG (27-31); MCHC 32.1 g/dL (33-37); MCV 94.3 FL (81-99); MONO# 0.71 X1000 (0.11-0.59); MONO% 6.9 % (1.7-9.3); NEUT# 8.28 X1000 (1.4-6.5); NEUT% 80.6 % (42.2-75.2); PLT 298 X1000 (130-400); RBC 4.23 XMIL (4.2-5.4); RDW 12.7 % (11.5-14.5); WBC 10.27 X1000 (4.8-10.8)
[2019-04-30 20:49] LABS: AGAP 16; BUN 12 mg/dL (8-22); CALCIUM 8.9 mg/dL (8.8-10.2); CHLORIDE 96 mmol/L (98-107); COSMO 266; CREATININE 0.5 mg/dL (0.5-0.9); ESTIMATED GFR > 60; GLUCOSE 105 mg/dL (70-104); POTASSIUM 4.5 mmol/L (3.5-5.1); SODIUM 133 mmol/L (136-145); TCO2 21 mmol/L (25-35)
[2019-04-30] MEDS: ZOCOR PO SCH (21:38)
[2019-04-30] MEDS: MIRAPEX PO SCH (21:38)
--- NOTE | 2019-04-30 21:42 | GENERAL SURGERY PROGRESS NOTE ---
DATE: 04/30/2019 SUBJECTIVE: Doing well. Bowel function. Tolerating diet. No fevers. No tachycardia. No chest pains. Her abdomen is soft. Incisions intact recurrent hernia. White count 6, hematocrit 34, creatinine 0.5. ASSESSMENT AND PLAN: This is a 73-year-old female status post incarcerated ventral hernia repair. She is doing well. She is tolerating her diet. She is having bowel function. No wound issues. I think the plan is to let her go home tomorrow if cleared from a medical perspective. I would like to see her in a week. I have given her postoperative instructions. cc: Jonh French MD
[2019-05-01] MEDS: HUMULIN R SUBQ SCH ×5 (01:21→21:33)
[2019-05-01] MEDS: TYLENOL PO PRN (01:32)
[2019-05-01] MEDS: MORPHINE IV PRN (01:34)
--- NOTE | 2019-05-01 06:58 | EKG Report ---
Test Performed on : 04/30/2019 7:13:48 PM Test Reason : NO EKG ORDER FOR MUSE Blood Pressure : / mmHG Vent. Rate : 106 BPM Atrial Rate : 106 BPM P-R Int : 148 ms QRS Dur : 082 ms QT Int : 326 ms P-R-T Axes : 110 200 196 degrees QTc Int : 433 ms Suspect arm lead reversal, interpretation assumes no reversal Sinus tachycardia. Right superior axis deviation Cannot rule out Anterior infarct , age undetermined T wave abnormality, consider inferior ischemia Abnormal ECG When compared with ECG of 30-APR-2019 07:12, premature ventricular complexes. are no longer present QRS axis shifted left Confirmed by Hunter EDWARDS, Kenan Stout ([id number]) on 05/04/2019 5:53:29 PM
[2019-05-01] MEDS: ZOFRAN IV PRN (08:25)
[2019-05-01 09:25] LABS: BASO# 0.04 X1000 (0.0-0.2); BASO% 0.3 % (0.0-0.8); EOS# 0.12 X1000 (0.0-0.7); HEMATOCRIT 34.8 % (37.0-47.0); HEMOGLOBIN 10.8 g/dL (12.0-16.0); IMM GRAN# 0.05 X1000 (0.0-0.04); IMM GRAN% 0.4 % (0.0-0.5); LYMPH# 0.65 X1000 (1.2-3.4); LYMPH% 5.7 % (20.5-51.1); MCH 29.8 PG (27-31); MCV 95.9 FL (81-99); MONO# 0.47 X1000 (0.11-0.59); MONO% 4.1 % (1.7-9.3); MPV 8.4 FL (7.4-10.4); NEUT# 10.16 X1000 (1.4-6.5); NEUT% 88.5 % (42.2-75.2); PLT 272 X1000 (130-400); RBC 3.63 XMIL (4.2-5.4); WBC 11.49 X1000 (4.8-10.8)
[2019-05-01 09:46] LABS: AGAP 12; ALB/GLOB RATIO 0.9; ALBUMIN 2.7 g/dL (3.5-5.0); ALKALINE PHOSPHATASE 68 U/L (32-104); BUN 8 mg/dL (8-22); CALCIUM 9.1 mg/dL (8.8-10.2); CHLORIDE 98 mmol/L (98-107); COSMO 275; CREATININE 0.5 mg/dL (0.5-0.9); ESTIMATED GFR > 60; GLUCOSE 112 mg/dL (70-104); GOT 24 U/L (10-30); GPT 19 U/L (10-36); POTASSIUM 3.9 mmol/L (3.5-5.1); SODIUM 138 mmol/L (136-145); TCO2 28 mmol/L (25-35); TOTAL BILIRUBIN 0.43 mg/dL (0.20-1.00); TOTAL PROTEIN 5.7 g/dL (6.3-8.3)
[2019-05-01] MEDS: SODIUM CHLORIDE 0.9% INJ SCH (10:29)
[2019-05-01] MEDS: WELLBUTRIN XL PO SCH (10:30)
[2019-05-01] MEDS: REGLAN PO SCH ×2 (10:30→22:06)
[2019-05-01] MEDS: COREG PO SCH ×2 (10:30→22:06)
[2019-05-01] MEDS: ASPIRIN PO SCH (10:30)
[2019-05-01] MEDS: NORCO-10 PO SCH ×2 (10:30→17:25)
[2019-05-01] MEDS: PROTONIX IV SCH (10:30)
[2019-05-01] MEDS: PERIDEX MT SCH ×2 (10:30→22:05)
--- NOTE | 2019-05-01 10:31 | EKG Report ---
Test Performed on : 05/01/2019 08:03:10 AM Test Reason : CAT CALL Blood Pressure : / mmHG Vent. Rate : 098 BPM Atrial Rate : 098 BPM P-R Int : 160 ms QRS Dur : 080 ms QT Int : 354 ms P-R-T Axes : 046 -05 -02 degrees QTc Int : 451 ms Normal sinus rhythm. Low voltage QRS Cannot rule out Anterior infarct (cited on or before 30-APR-2019) Abnormal ECG When compared with ECG of 30-APR-2019 19:13, (Unconfirmed) QRS axis shifted right Confirmed by Hunter EDWARDS, Kenan Stout ([id number]) on 05/04/2019 5:54:35 PM
[2019-05-01 11:00] LABS: URINE SOURCE CLEAN CATCH
[2019-05-01 11:08] LABS: BILIRUBIN URINE NEGATIVE (NEGATIVE); BLOOD URINE MODERATE (NEGATIVE); COLOR YELLOW; GLUCOSE URINE 100 mg/dL (NEGATIVE); KETONE URINE NEGATIVE (NEGATIVE); LEUKOCYTES URINE TRACE (NEGATIVE); NITRITE URINE NEGATIVE (NEGATIVE); PROTEIN URINE TRACE mg/dL (NEGATIVE); SP GRAVITY URINE 1.019; TURBIDITY URINE CLEAR (CLEAR); UROBILINOGEN URINE 2 mg/dL (NORMAL)
[2019-05-01 11:12] LABS: UR EPITHELIAL CELLS <10 /HPF (<10); URINE BACTERIA NEGATIVE /HPF; URINE RBC <10 /HPF (<10)
[2019-05-01 11:21] LABS: BANDS 1 % (0-1); LARGE PLATELETS OCCASIONAL; LYMPHS 5 % (21-51); MONO 1 % (1-9); SEGS 93 % (42-75)
[2019-05-01 11:43] LABS: URINE CRYSTALS NONE SEEN
[2019-05-01] MEDS: ZOCOR PO SCH (22:05)
[2019-05-01] MEDS: MIRAPEX PO SCH (22:06)
--- NOTE | 2019-05-01 22:08 | PROGRESS NOTE ---
DATE: 05/01/2019 SUBJECTIVE: This morning, patient had a CAT team called. EKG was limb lead reversal, otherwise no changes. She is withdrawing from [place]. Morphine was stopped, and she is eating well, ambulating well. Complains of dysuria, low-grade fever. OBJECTIVE: Vital signs: Temperature is 98 degrees. Vitals are stable. HEENT Exam: Within normal limits. Chest: Bilateral air entry. Cardiovascular: Heart sounds are regular. Abdomen: Belly is soft, nontender. Good bowel sounds. INVESTIGATIONS: White cell count 11, hematocrit 34, platelets 272,000. SMA 7 is normal. ASSESSMENT AND PLAN: 1. Altered mental status due to delirium, withdrawal from drugs. Started on [place] 10, advance the diet. 2. Out of the bed with physical therapy, dysuria. Check the urine for culture. 3. Positive cardiac enzymes. Once he is stable, consider stress test down the line. 4. Status post incarcerated hernia repair, getting better and if she continues to improve, we will discharge home over the weekend with home health care and will follow up. LEVEL OF DOCUMENTATION: 25 minutes. cc: MD Jonh Mcdermott MD
--- NOTE | 2019-05-01 22:16 | GENERAL SURGERY PROGRESS NOTE ---
DATE: 05/01/2019 SUBJECTIVE: She had a fever overnight, presumably related to phlebitis from a peripheral IV. The remainder of her workup has been unremarkable. She has had no fever since it was removed and the line was placed. Her bowels are functioning. She is tolerating a diet and overall she feels okay. Her incision is intact. There is no recurrent hernia. White count is slightly elevated at 11, hematocrit is 34, creatinine is 0.5. She had a urinalysis that did show trace leukocytes, moderate blood, but negative for nitrates. ASSESSMENT AND PLAN: A 73-year-old female status post incarcerated ventral hernia repair. From a GI standpoint, she is doing well. We can advance her diet. From an infectious standpoint, my suspicion is that she had a superficial phlebitis related to an IV in her right antecubital fossa. There is a palpable cord here. I do not see any purulence or cellulitis. We will continue to follow her along but, assuming she has no other infectious etiology, surgically she could go home when cleared medically. cc: Jonh French MD
[2019-05-02] MEDS: NORCO-10 PO SCH ×3 (01:01→18:42)
[2019-05-02] MEDS: HUMULIN R SUBQ SCH ×4 (07:36→22:44)
[2019-05-02] MEDS: PROTONIX IV SCH (11:00)
[2019-05-02] MEDS: WELLBUTRIN XL PO SCH (11:01)
[2019-05-02] MEDS: COREG PO SCH ×2 (11:01→22:44)
[2019-05-02] MEDS: SODIUM CHLORIDE 0.9% INJ SCH (11:01)
[2019-05-02] MEDS: REGLAN PO SCH ×2 (11:02→22:44)
[2019-05-02] MEDS: PERIDEX MT SCH ×2 (11:02→22:44)
[2019-05-02] MEDS: ASPIRIN PO SCH (11:02)
[2019-05-02] MEDS ORDERED: LEVAQUIN PO ONE (12:41)
--- NOTE | 2019-05-02 13:13 | PROGRESS NOTE ---
DATE: 05/02/2019 Ms. Arambula is a 73-year-old white female, who underwent an incarcerated ventral incisional hernia repair per Dr. French on 04/26/2019. Mesh was not placed at this time. The wound looks good. There are no wound problems. She has some seroma underneath the wound. She has an abdominal binder in place. She is on a heart healthy diet. Overall, I think she is doing well surgically. Dr. Keys is taking care of her medically, and she can be discharged when he is ready to with followup per Dr. French. cc: MD Jonh Schwartz MD
--- NOTE | 2019-05-02 15:27 | PROGRESS NOTE ---
DATE: 05/02/2019 SUBJECTIVE: The patient is a little better. Mental confusion, better. No chest pain. Walking well. Positive enzymes not clear. REVIEW OF SYSTEMS: Dysuria. OBJECTIVE: On examination temp is 97.8 degrees, pulse 85. Vitals are stable.HEENT: Within normal limits. Neck: Supple, no lymphadenopathy. Chest: Bilateral air entry. Heart: Sounds are regular. Belly is soft, nontender. Good bowel sounds. LABORATORY DATA: Urinalysis positive for infection. ASSESSMENT AND PLAN: 1. Postoperative for incarcerated hernia. 2. Altered mental status due to delirium, improving. 3. Urinary tract infection. Levaquin 1 dose daily. 4. Positive enzymes, asymptomatic. 5. Out of the bed with physical therapy. 6. If she is stable will discharge in the morning, p.o. antibiotics. Outpatient cardiac workup once she was stable. Family agreed upon the LEVEL OF DOCUMENTATION: 25 minutes. cc: MD Jonh Mcdermott MD
[2019-05-02] MEDS: MIRAPEX PO SCH (22:44)
[2019-05-02] MEDS: ZOCOR PO SCH (22:44)
[2019-05-03] MEDS: NORCO-10 PO SCH ×2 (03:34→10:39)
--- NOTE | 2019-05-03 08:02 | PROGRESS NOTE ---
DATE: 05/03/2019 Ms. Arambula is a 73-year-old, white female who underwent incisional hernia repair per Dr. French. No mesh was used. The wound is healing well with skin clips. She is ambulating in the halls and she may be discharged today per Dr. Keys. After discharge, she needs to return to our outpatient offices in a week for followup and skin clip removal. cc: MD Jonh Schwartz MD
[2019-05-03] MEDS ORDERED: LEVAQUIN PO SCH (09:00)
[2019-05-03] MEDS ORDERED: MACROBID PO SCH (09:00)
[2019-05-03] MEDS: HUMULIN R SUBQ SCH ×2 (10:38→10:42)
[2019-05-03] MEDS: COREG PO SCH (10:39)
[2019-05-03] MEDS: ASPIRIN PO SCH (10:41)
[2019-05-03] MEDS: WELLBUTRIN XL PO SCH (10:41)
[2019-05-03] MEDS: PROTONIX IV SCH (10:42)
[2019-05-03] MEDS: REGLAN PO SCH (10:42)
[2019-05-03] MEDS: PERIDEX MT SCH (10:42)
[2019-05-03 11:34] VITALS: BP 138/65
--- NOTE | 2019-05-03 15:04 | DISCHARGE SUMMARY ---
ADMISSION DATE: 04/26/2019 DISCHARGE DATE: 05/03/2019 DISCHARGING DIAGNOSIS: Incarcerated ventral incisional hernia. SECONDARY DIAGNOSES: 1. Urinary tract infection. 2. Altered mental status due to delirium. 3. Moderate aortic stenosis with aortic insufficiency/bicuspid aortic valve. 4. Chronic anxiety. 5. History of collagenous colitis. 6. Depression. 7. Type 2 diabetes. 8. Hypertension. 9. Hiatal hernia. 10. Hyperlipidemia. 11. B12 deficiency. CONSULTS: Марина Keys MD, internal medicine. BRIEF HISTORY: Please see the H and P that was done by Dr. French. In brief, she is a 73-year- old, white female who was admitted to the hospital with abdominal pain, nausea, and vomiting due to incarcerated small bowel due to incisional hernia. The patient had surgery done by Dr. French. Postoperative course was complicated with these following problems: 1. Positive cardiac enzymes which were false-positive. No chest pain. Echocardiography, normal LV function. EKG did not show any ischemic changes. Once he recuperates, the patient has agreed upon to do an outpatient cardiac workup. 2. She has mild aortic stenosis/bicuspid with aortic insufficiency. Continue to monitor. 3. Delirium due to withdrawal from [place]. It has been resolved after the adequate pain control. 4. Urinary tract infection due to ESBL Escherichia coli, resistant to Levaquin. Started on Macrobid. The rest of the hospital course was uneventful. LABS: CBC: White cell count 11, hematocrit 35, platelets 272,000. SMA-7: Sodium 138, potassium 3.9, chloride 98, BUN 8, creatinine 0.5, glucose 112. Positive CKs and troponin, asymptomatic. Urine is E. coli. Blood cultures were negative. DISCHARGE INSTRUCTIONS: Patient was discharged home in a stable condition with these following instructions: 1. Abdominal binder was taken out. Jie are intact. No signs of infection. Follow up with Dr. French next week to remove the jie. 2. Coreg 3.125 p.o. b.i.d., diclofenac gel as needed, [place] 10 q.8 as needed for pain, metformin 1000 p.o. b.i.d., Reglan 5 mg p.o. b.i.d., Prilosec 20 mg daily, Mirapex 0.5 mg at bedtime, simvastatin 20 mg daily, Fosamax 70 mg once a week, bupropion 300 mg in the morning, losartan 100 mg daily, Macrobid 100 p.o. b.i.d. 3. Follow up in my office as well. cc: MD Jonh Mcdermott MD Lynn R. Buckner, MD
== END 2019-05-03 15:06 | disposition home or self-care (01) | DRG 354 ==
LOC: ED 09:32 → 4N 09:32 → OBSVTOIN 16:55
PROVIDERS: ADMIT Surgery; ATTEND Surgery